=== PATIENT | male | born 1965 ===

== ENCOUNTER 2024-03-27 20:21 | Emergency (ER) | payer BC ==
[~2024-03-27] VITALS: Ht 188 cm; Wt 95.0 kg
[2024-03-27 20:27] VITALS: BP 136/81; PULSE 63; RESP 16; TEMP 98; O2SAT 95
== END 2024-03-28 02:16 | disposition left against medical advice (07) ==
LOC: ER 20:22
DX: R10.9 Unspecified abdominal pain (principal); R11.0 Nausea; Z53.21 Procedure and treatment not carried out due to patient leaving prior to being seen by health care provider